=== PATIENT | male | born 1975 | race Caucasian/White ===

== ENCOUNTER 2023-12-17 11:34 | Day surgery (SDC) | payer OTHER, SELFPAY ==
[2023-12-10 15:18] VITALS: BMI 28.0
[2023-12-17] VITALS (9 sets, daily range): BP systolic 119–143; BP diastolic 81–89; PULSE 78–97; RESP 10–23; TEMP 36.2–36.7; O2SAT 96–100; BMI 28.0
--- NOTE | 2023-12-17 | PATH_ITS ---
[facility] Accession Number: [id number] No. of containers..01 Tissue . 01 Material submitted: . gallbladder - GALLBLADDER . 01 Diagnosis: GALLBLADDER, CHOLECYSTECTOMY: Mild chronic calculous cholecystitis and cholesterolosis. Benign lymph node of cystic duct, with reactive changes. Negative for dysplasia and malignancy. [facility] 12/19/2023 1354 Local . 01 Electronically signed: . Bibi Anglin MD, Pathologist NPI- [id number] . 01 Gross description: . Received in formalin with two patient identifiers and gallbladder, is an intact gallbladder (8.5 x 2.5 x 2.5 cm) with violaceous, roughened exterior surface. The cystic duct margin is inked blue, and a small pericystic lymph node, 5 mm in diameter is identified. The lumen contains a green roughened calculous, 2.6 cm in greatest dimension, along with dark green mucoid bile. The mucosa is green and roughened with numerous yellow areas of discoloration. The tubbs average 0.3 cm thick. It Security Administrator sections to include the cystic duct margin and full thickness sections are submitted in A1. ([id number]) /MRV 12/19/2023 0856 Local . 01 Pathologist provided ICD-10: K80.20 . 01 CPT . 607350 Specimen Comment: A courtesy copy of this report has been sent to [phone] Performed at: [address] [id number] MD Danial Frye MD Phone: [phone]
--- NOTE | 2023-12-17 12:00 | PM.PREOP ---
Pre-operative Note COVID-19 COVID-19 status: Not tested Interval Note History & Physical reviewed/Exam performed by Physician: Yes Changes to H&P: No ASA Class (for procedural sedation): II
[2023-12-17] MEDS: LACTATED RINGERS 1,000 ML 100 ML IV ×2 (12:03→13:46)
[2023-12-17] MEDS: CEFAZOLIN 2 GM/100 ML PREMIX 100 ML IV (12:46)
[2023-12-17] MEDS: ACETAMINOPHEN IV 1,000 MG/100 ML VIAL 400 MG IV (12:52)
--- NOTE | 2023-12-17 13:04 | SUR.OPER ---
Supine on padded OR bed, head on pillow, safety belt at thigh, left arm padded and tucked at side. Right arm secured on padded arm board <90 degrees abduction. Legs uncrossed. Padded footboard in place. Tape over blanket to secure lower legs.
[2023-12-17] MEDS: BUPIVACAINE 0.5% (PF) 30 ML, EPINEPHrine 0.15 MG INJ (13:17)
--- NOTE | 2023-12-17 13:48 | PM.OP.1 ---
Operative Date/Time/Diagnoses Date of procedure: 12/17/23 Time of procedure: 13:48 Pre-op diagnosis: Symptomatic cholelithiasis Post-op diagnosis: same Procedure & Clinicians Procedure: Laparoscopic cholecystectomy Same procedure as scheduled: Yes Surgeon: Fredy Vargas Credit Analysis Manager: Timo Rueda Anesthesia Type: General Operative Notes Procedure in detail: The patient was given preoperative antibiotics. The patient was brought to the operating room and placed on the table in the supine position. General endotracheal anesthesia was induced. The abdomen was prepped and draped. A time-out was performed. We made a 1 cm infraumbilical incision. We dissected down to the base of the umbilical stalk using cautery. We grasped the umbilical stalk with a Lynnette clamp to elevate the abdominal wall. We scored the fascia in the midline with cautery. We pierced the peritoneum with a Peon clamp. The Mandeep port was placed and the abdomen was insufflated to 15 mmHg. A 5 mm 30 degree laparoscopic was inserted. There was no evidence of any injury from the entry. Next, we placed 5 mm ports in the subxiphoid position and right upper quadrant at the midclavicular line and anterior axillary line. The patient was then positioned in reverse Trendelenburg and the table was tilted to the left. The gallbladder was grasped at the dome and retracted cephalad. There were adhesions of mesenteric fat to the wall of the gallbladder which were taken down with cautery and blunt dissection. We then dissected the cystic structures with a combination of hook cautery and blunt dissection. We obtained a critical view. We placed clips on the cystic duct and artery and divided the cystic duct and artery sharply between the clips. The gallbladder was then dissected off the liver and placed in a specimen retrieval bag. We irrigated the right upper quadrant and all the aspirate returned clear. We then removed the 5 mm ports under direct vision we removed the Mandeep port. We then injected some local into the fascia and closed the fascia with 2 interrupted 0 Vicryl sutures. The skin incisions were closed with 4-0 Monocryl and Steri-Strips were applied. Band-Aids were applied over the Steri-Strips. EBL: 20 mL Specimen: Gallbladder and contents Timo GUAJARDO provided assistance with exposure, retraction and closure of incisions. Post-operative Condition: stable Disposition: PACU
[2023-12-17] MEDS: OXYCODONE IR 5 MG TABLET PO ×2 (14:20→14:48)
[2023-12-17] MEDS: fentaNYL 100 MCG/2 ML INJ IV (14:30)
--- NOTE | 2023-12-17 14:31 | SUR.PHASEI ---
Patient reported upper abd chest and back pain\pressure, 5/10. Denies SOB, nausea. Christy Villanueva CRNA notified. EKG ordered.
--- NOTE | 2023-12-17 14:36 | EKG_ITS ---
[facility] [address] [place] [address] Test Date: 2023-12-17 Pat Name: Daron José Department: Room: Gender: Male Certified Wellness Program Manager: : 1975 Requested By: Order Number: [id number] Reading MD: Niko Toro Measurements Intervals Watkins Rate: 80 P: 40 DE: 178 QRS: -11 QRSD: 88 T: 53 QT: 394 QTc: 454 Interpretive Statements Sinus rhythm with frequent premature ventricular complexes Electronically Signed On 12-23-2023 9:08:55 PDT by Niko Toro
--- NOTE | 2023-12-17 14:42 | SUR.PHASEI ---
EKG reviewed by Christy Villanueva. No new orders.
--- NOTE | 2023-12-17 14:43 | P.PN_ITS ---
Subjective Subjective Interval history: Pt complaining of pain between his shoulder blades like with his gall bladder attack in RR. 12 lead ordered and compared to previous EKG. Appears unchanged. Pt informed. Tryring position changes to improve pain. Has received fentanyl and oxycodone. Will continue to monitor. Up and walking to rest room. Pain improved a small amount. Exam Vital Signs (past 8 hours): - 12/17/23 12:04 12/17/23 14:01 12/17/23 14:06 Temperature 98.1 F Pulse Rate 78 97 H 84 Respiratory Rate 18 16 23 Blood Pressure 137/83 143/82 H 126/85 Pulse Oximetry 100 98 100 Oxygen Delivery Method Room Air Room Air Room Air 12/17/23 14:11 12/17/23 14:16 12/17/23 14:32 Temperature Pulse Rate 83 84 80 Respiratory Rate 22 22 15 Blood Pressure 121/86 128/83 Pulse Oximetry 99 98 100 Oxygen Delivery Method Room Air Room Air Room Air 12/17/23 14:43 Temperature Pulse Rate 86 Respiratory Rate 15 Blood Pressure 119/88 Pulse Oximetry 98 Oxygen Delivery Method Room Air Oxygen Delivery Method Room Air [facility] Medical History Gallstones PVC (premature ventricular contraction) Surgical History History of appendectomy Family History Father Hypertension Heart disease Stroke Bladder cancer Grandmother Heart disease Grandmother Heart disease Mother Gallstones Sister Gallstones Social History marital status: household members: spouse and children lives independently: Yes occupational status: employed Smoking Status: Never smoker alcohol intake: current substance use type: does not use Assessment & Plan Time-Based Coding :: [TOTAL MINUTES] spent with patient and on the chart (including review of chart, obtaining history, exam, reviewing outside data, placing orders, documenting exam and treatment plan, and counseling patient) on [DATE].
== END 2023-12-17 15:18 | disposition home or self-care (01) ==
PROVIDERS: PCP Family Medicine; Referring Provider Surgery; Visit Provider Surgery
PROC: 0FT44ZZ Resection of Gallbladder, Percutaneous Endoscopic Approach (ICD-10-PCS; CPT 47562; principal; 2023-12-17 13:45)
DX: K80.10 Calculus of gallbladder with chronic cholecystitis without obstruction (principal)
CPT/HCPCS: 47562; 93005; J0136; J0171; J0690; J1100; J1885; J2250; J2405; J2704; J3010